=== PATIENT | male | born 2005 | race Caucasian/White ===

== ENCOUNTER 2025-02-15 03:00 | Emergency (ER) | payer BC ==
[2025-02-15 03:49] LABS: #Basophils 0.05 10x3/uL (0.0-0.2); #Eosinophils 0.03 10x3/uL (0.0-0.7); #Monocytes 0.40 10x3/uL (0.11-0.59); #Neutrophils 5.34 10x3/uL (1.40-6.50); %Basophils 0.7 % (0.0-1.0); %Eosinophils 0.4 % (0.0-10.0); %Lymphocytes 21.4 % (28.0-48.0); %Monocytes 5.4 % (0.0-4.0); %Neutrophils 71.8 % (31.0-61.0); Hematocrit 42.0 % (42.0-52.0); Hemoglobin 13.9 g/dL (14.0-18.0); Mean Corpuscular Hemoglobin 29.5 pg (25.0-35.0); Mean Corpuscular Volume 89.2 fL (78.0-98.0); Platelet Count 255 10x3/uL (130-400); Red Blood Cell (RBC) Count 4.71 mill/uL (4.00-5.20); White Blood Cell (WBC) Count 7.43 10x3/uL (4.8-10.8)
[2025-02-15 04:05] LABS: INR-International Normal Ratio 1.1; PTT 28.7 sec (22.9-36.1); Prothrombin Time 14.4 sec (12.0-14.7)
[2025-02-15 04:15] LABS: ALT (SGPT) 27 U/L (Less than 45); AST (SGOT) 42 U/L (11-34); Acetaminophen Less than 10 mcg/mL (Less than 10); Albumin 4.3 g/dL (3.1-4.5); Alkaline Phosphatase 52 U/L (50-130); Anion Gap 14 mmol/L (10-20); BUN (Urea Nitrogen) 12 mg/dL (8.9-20.6); Bilirubin, Total 0.3 mg/dL (0.3-1.2); Calc. Creatinine Clearance 0 mL/min (70-130); Calcium 8.7 mg/dL (7.8-10.44); Carbon Dioxide 23 mmol/L (22-29); Chloride 106 mmol/L (98-107); Globulin 2.2 g/dL (2.4-3.5); Glucose 88 mg/dL (70-105); Potassium 3.7 mmol/L (3.5-5.1); Salicylate Less than 8.0 mg/dL (Less than 8.0); Sodium 139 mmol/L (136-145)
[2025-02-15] MEDS ORDERED: Bacitracin 1 PK ONE (04:38)
[2025-02-15] MEDS ORDERED: Iopamidol 370 76% 100 ML VIAL ONE (11:18)
[2025-02-15] MEDS ORDERED: Acetaminophen 500 MG TAB ONE (12:12)
== END 2025-02-15 12:55 ==
LOC: ERS 03:00
DX: S00.211A Abrasion of right eyelid and periocular area, initial encounter (principal); R45.851 Suicidal ideations; V49.3XXA Car occupant (driver) (passenger) injured in unspecified nontraffic accident, initial encounter; Z55.6 Problems related to health literacy
CPT/HCPCS: 70450; 70486; 71045; 71260; 72125; 74177; 80053; 80307; 84443; 85025; 85610; 85730; 93005; G0390; Q9967